=== PATIENT | male | born 1970 | race Caucasian/White ===

== ENCOUNTER 2019-08-15 07:25 | Outpatient (CLI) | payer OTHER ==
--- NOTE | 2019-08-15 22:07 | XRAY Report ---
Reason: WEAKNESS OF LEFT HAND,CERVALGIA Procedure Date: 08/15/2019 Accession Number: [id number] / [id number] Procedure: XRS - Wrist 4 View LT CPT Code: Final Report FULL RESULT: EXAM: LEFT WRIST RADIOGRAPHY EXAM DATE: 08/15/2019 08:10 AM. CLINICAL HISTORY: WEAKNESS OF LEFT HAND. COMPARISON: None. TECHNIQUE: 4 views. FINDINGS: Bones: No acute fracture. Joints: No dislocation or subluxation. Soft Tissues: Unremarkable. IMPRESSION: No acute osseous or articular abnormality. [facility]
--- NOTE | 2019-08-15 22:10 | XRAY Report ---
Reason: WEAKNESS OF LEFT HAND,CERVALGIA Procedure Date: 08/15/2019 Accession Number: [id number] / [id number] Procedure: XRS - Elbow 3 View LT CPT Code: Final Report FULL RESULT: EXAM: LEFT ELBOW RADIOGRAPHY EXAM DATE: 08/15/2019 08:10 AM. CLINICAL HISTORY: WEAKNESS OF LEFT HAND,CERVALGIA. COMPARISON: None. TECHNIQUE: 3 views. FINDINGS: Bones: Normal. No fractures or bone lesions. Joints: Normal. No effusion. No subluxation. Soft Tissues: Normal. No soft tissue swelling. IMPRESSION: Normal elbow radiography. [facility]
--- NOTE | 2019-08-15 22:10 | XRAY Report ---
Reason: WEAKNESS OF LEFT HAND,CERVALGIA Procedure Date: 08/15/2019 Accession Number: [id number] / [id number] Procedure: XRS - Hand 3 View LT CPT Code: Final Report FULL RESULT: EXAM: LEFT HAND RADIOGRAPHY EXAM DATE: 08/15/2019 08:10 AM. CLINICAL HISTORY: WEAKNESS OF LEFT HAND,CERVALGIA. COMPARISON: WRIST 4 VIEW LT 08/15/2019 8:14 AM. TECHNIQUE: 3 views. FINDINGS: Bones: Normal. No fractures or bone lesions. Joints: Normal. No subluxations. Soft Tissues: Normal. No soft tissue swelling. IMPRESSION: Normal hand radiography. [facility]
--- NOTE | 2019-08-15 22:13 | XRAY Report ---
Reason: WEAKNESS OF LEFT HAND,CERVALGIA Procedure Date: 08/15/2019 Accession Number: [id number] / [id number] Procedure: XRS - Shoulder 3 View LT CPT Code: Final Report FULL RESULT: EXAM: LEFT SHOULDER RADIOGRAPHY EXAM DATE: 08/15/2019 08:10 AM. CLINICAL HISTORY: WEAKNESS OF LEFT HAND,CERVALGIA. COMPARISON: None. TECHNIQUE: 4 views. FINDINGS: Bones: Normal. No fracture or bone lesion. Joints: The glenohumeral and acromioclavicular joints are normal. Soft tissues: The visualized hemithorax is unremarkable. No soft tissue swelling. IMPRESSION: Normal shoulder radiography. [facility]
--- NOTE | 2019-08-15 22:15 | XRAY Report ---
Reason: WEAKNESS OF LEFT HAND,CERVALGIA Procedure Date: 08/15/2019 Accession Number: [id number] / [id number] Procedure: XRS - Cervical Spine 2 View CPT Code: Final Report FULL RESULT: EXAM: CERVICAL SPINE RADIOGRAPHY EXAM DATE: 08/15/2019 08:10 AM. CLINICAL HISTORY: WEAKNESS OF LEFT HAND,CERVALGIA. COMPARISONS: None. TECHNIQUE: 3 views. FINDINGS: Alignment: Reversal of the normal cervical lordosis, centered at C5. No subluxations. Bones: The cervical vertebral bodies and posterior elements are well visualized from the skull base through C7-T1. No fractures or bone lesions. Disks: Mild disk height loss at C5-C6 and C6-C7. Facets: Some mild facet disease at C2-C3. Soft Tissues: Normal. No prevertebral soft tissue swelling. The visualized lung apices are clear. IMPRESSION: Reversal of the normal cervical lordosis, but no subluxations. Mild disk height loss at C5-C6 and C6-C7 which may be degenerative, otherwise unremarkable exam. [facility]
== END 2019-08-15 07:26 | disposition home or self-care (01) ==
LOC: DI.S 07:25
PROVIDERS: ATTEND Nurse Practitioner Family
DX: R29.898 Other symptoms and signs involving the musculoskeletal system (principal); M47.812 Spondylosis without myelopathy or radiculopathy, cervical region; M50.822 Other cervical disc disorders at C5-C6 level
CPT/HCPCS: 72040